=== PATIENT | male | born 1980 | race African-American/Black ===

== ENCOUNTER 2017-12-16 10:20 | Day surgery (SDC) | payer OTHER ==
[2017-12-16] MEDS ORDERED: LIDOCAINE 1% (MPF) 30 ML INJ (12:42)
[2017-12-16] MEDS ORDERED: BUPIVACAINE 0.5% (SDV) 30 ML INJ (12:42)
[2017-12-16] MEDS ORDERED: DEXAMETHASONE 4 MG/ML 1 ML INJ (12:42)
[2017-12-16] MEDS ORDERED: PROPOFOL 20 ML ×2 (13:17→13:52)
[2017-12-16] MEDS ORDERED: ROPIVACAINE 0.5 % 30 ML VIAL (13:17)
[2017-12-16] MEDS ORDERED: MIDAZOLAM 1 MG/ML 2 ML INJ (13:17)
[2017-12-16] MEDS ORDERED: METOCLOPRAMIDE 10 MG INJ (13:17)
[2017-12-16] MEDS ORDERED: FENTAnyl 50 MCG/ML VIAL (13:43)
[2017-12-16] MEDS ORDERED: HYDROmorphONE 2 MG/ML SYG (14:04)
[2017-12-16] MEDS ORDERED: METOPROLOL 5 MG INJ (14:05)
[2017-12-16] MEDS: ROPIVACAINE 0.5 % 30 ML VIAL INJ (14:43)
[2017-12-16] MEDS: POVIDONE IODINE 10% 28.4 GM OINT (14:48)
[2017-12-16] MEDS ORDERED: ONDANSETRON 4 MG INJ (15:06)
== END 2017-12-16 16:15 | disposition home or self-care (01) ==
LOC: SDS 10:20
DX: M20.42 Other hammer toe(s) (acquired), left foot (principal); Z86.73 Personal history of transient ischemic attack (TIA), and cerebral infarction without residual deficits
CPT/HCPCS: 28285; 88304; 88311